=== PATIENT | female | born 1955 | race Hispanic/Latino ===

== ENCOUNTER 2016-10-30 22:04 | Emergency (ER) | payer MEDICAID | END 2016-10-31 00:12 | disposition home or self-care (01) | LOC: ER 22:04 | DX: T78.49XA Other allergy, initial encounter (principal); J20.8 Acute bronchitis due to other specified organisms; N30.00 Acute cystitis without hematuria | CPT/HCPCS: 36415; 80053; 81001; 83690; 85025; 87088 ==